=== PATIENT | female | born 1950 | race Caucasian/White ===

== ENCOUNTER 2020-04-10 08:44 | Emergency (ER) | payer OTHER, SELFPAY ==
[2020-04-10 08:57] VITALS: BP 164/96; PULSE 84; RESP 16; TEMP 36.8; O2SAT 99
--- NOTE | 2020-04-10 09:10 | ED.SKABFB ---
HPI - Skin/Abscess/Foreign Bdy General Chief complaint: Skin/Abscess/Foreign Body Stated complaint: insect bites Time Seen by Provider: 04/10/20 08:57 Source: patient and RN notes reviewed Mode of arrival: ambulatory Limitations: no limitations History of Present Illness HPI narrative: Patient presents today complaining of severely pruritic bumps to the chin, upper back, neck, and right breast. They were noted yesterday morning. They itch profusely. Patient has been using alcohol wipes, Benadryl, and hydrocortisone without much relief. Patient lives alone. States she does work outside frequently. MD complaint: insect bite/sting Related Data Allergies Allergy/AdvReac Type Severity Reaction Status Date / Time No Known Allergies Allergy Verified 04/25/14 13:04 Review of Systems Review of Systems: Narrative: CONSTITUTIONAL: Denies body aches, fever, chills, or sweats. EYES: Denies visual changes, redness, or discharge. ENT: Denies rhinorrhea, congestion, sore throat, or otalgia. CARDIOVASCULAR: Denies chest pain, palpitations, or edema. RESPIRATORY: Denies cough or dyspnea. GASTROINTESTINAL: Denies abdominal pain, nausea, vomiting, or diarrhea. GENITOURINARY: Denies dysuria or hematuria. SKIN: Denies wounds.+ Pruritic bumps MUSCULOSKELETAL: Denies back pain, joint pain, or myalgia. NEUROLOGIC: Denies headache, numbness, tingling, or weakness. PSYCH: Denies depression or anxiety. [facility]LY [facility] Past Medical History Medical History (Updated 04/10/20 @ 09:13 by Stephanie Leon, [facility], ) Blood glucose elevated HTN (hypertension) with goal to be determined Lumbar spondylosis Social History Social History (Updated 01/08/20 @ 11:52 by Sasha Briones) Social History: Smoking status: Former smoker Tobacco type: cigarettes Second hand tobacco smoke exposure: No Smoking end date: 11/12/97 Alcohol intake: current Drinks per week: 2 Substance use: never Substance use type: does not use Gender identity (if verbalized by the patient): Female Comments At time of signature, I have reviewed and agree with nursing past medical, surgical, social and family history unless otherwise noted. Please see nursing chart for further information. There is no relevant family history pertinent to the presenting complaint Exam Narrative: Exam Narrative: GENERAL: Well-appearing, well-nourished, and in no acute distress. HEAD: Normocephalic, atraumatic. EYES: EOMI. No redness or drainage. Conjunctivae normal. ENT: Mucous membranes pink and moist. NECK: Normal AROM. Supple. No lymphadenopathy. CHEST: No respiratory distress. EXTREMITIES: Normal range of motion. No edema. SKIN: Warm, dry. Capillary refill normal. Normal skin turgor. Erythematous nodules with obvious puncture wounds to bilateral neck, bilateral chin, right upper back, and right wrist. Consistent with insect bites. Nontender. No active drainage. NEURO: No focal deficits. Alert and oriented x3. Gait steady. PSYCH: Normal affect. No signs of depression or anxiety. Course Vital Signs Vital signs: Vital Signs Temperature 98.3 F 04/10/20 08:57 Pulse Rate 84 04/10/20 08:57 Respiratory Rate 16 04/10/20 08:57 Blood Pressure 164/96 H 04/10/20 08:57 Pulse Oximetry 99 04/10/20 08:57 Temperature 98.3 F 04/10/20 08:57 Pulse Rate 84 04/10/20 08:57 Respiratory Rate 16 04/10/20 08:57 Blood Pressure 164/96 H 04/10/20 08:57 Pulse Oximetry 99 04/10/20 08:57 Reviewed. Pt has been instructed to follow up with her PCP regarding her elevated blood pressure today. MDM - Skin/Abscess/Foreign Bdy Differential Diagnosis Differential diagnosis: Likely abscess of skin or subcutaneous tissue, urticaria, cellulitis, insect bites, impetigo and contact dermatitis Critical Care Time Critical Care Time Critical Care Time: No Discharge Plan Discharge Clinical Impression: Allergic reaction to insect bite Patient Disposi
== END 2020-04-10 09:18 | disposition home or self-care (01) ==
PROVIDERS: Emergency Provider Nurse Practitioner; PCP Family Medicine
DX: T63.481A Toxic effect of venom of other arthropod, accidental (unintentional), initial encounter (principal); I10 Essential (primary) hypertension; Z87.891 Personal history of nicotine dependence
CPT/HCPCS: 99213; G0463

== ENCOUNTER → 2020-05-10 13:07 | Outpatient (CLI) | payer OTHER, SELFPAY ==
--- NOTE | ~2020-05-10 | DEXA_ITS ---
Bone Density Report Name: Ying Almonte Age: 69 Sex: Female Ethnicity: White Date of : 1950 Indication: postmenopausal; screening for osteoporosis; Referring Provider: Stacie Kumar Study: Bone densitometry was performed. Exam Date: May 10, 2020 Accession number: [id number] Bone Density: Region BMD T-score Z-score Classification AP Spine (L1-L4) 1.030 -0.2 2.1 Normal Femoral Neck (Left) 0.737 -1.0 0.9 Normal Total Hip (Left) 0.947 0.0 1.6 Normal Femoral Neck (Right) 0.871 0.2 2.1 Normal Total Hip (Right) 0.998 0.5 2.1 Normal Total Hip Mean 0.973 0.3 1.9 Normal World Health Organization criteria for BMD impression classify patients as: Normal (T-score at or above -1.0), Osteopenia (T-score between -1.0 and -2.5), or Osteoporosis (T-score at or below -2.5). 10-year Fracture Risk: FRAX not reported because: All T-scores for Spine Total, Hip Total, Femoral Neck at or above -1.0 Previous Exams: Region Exam Age BMD T-score BMD Change BMD Change Date g/cm2 vs Baseline vs Previous AP Spine(L1-L4) 05/10/2020 69 1.030 -0.2 0.028* 0.028* 02/01/2018 67 1.001 -0.4 Total Hip(Left) 05/10/2020 69 0.947 0.0 0.021 0.021 02/01/2018 67 0.926 -0.1 Total Hip(Right) 05/10/2020 69 0.998 0.5 0.021 0.021 02/01/2018 67 0.977 0.3 *Denotes significance at 95% confidence level, LSC for AP Spine = 0.022 g/cm2, LSC for Total Hip = 0.027 g/cm2 Clinical Information Provided by Patient: Has used the following medications: Vitamin D Patient maximum height was 59 Menopause Age: 53 No regular weight bearing exercise Does not regularly consume dairy products Drinks caffeinated beverages Onset of menses at age 9 Number of children 3 Impression: The patient has normal bone mass. No significant bone loss was observed. Discussion: BONE DENSITY IS ABOVE THE MINIMUM DESIRABLE LEVEL AT ALL SKELETAL SITES TESTED. This patient?s bone mineral density is above the minimum desirable level (T-score -1.0 or better) at all sites measured. The patient should follow a healthful lifestyle (good nutrition with adequate calcium and vitamin D, and appropriate weight-bearing exercise). Follow-Up: Consider repeating this study in 5 years or sooner if there is some new clinical indication. Reported by: JAIME on 05/10/2020 1:27:00 PM. violet Joseph
--- NOTE | ~2020-05-10 | MM_ITS ---
EXAMINATION: MM screening [facility] BI w rene HISTORY: Screening mammogram TECHNIQUE: Craniocaudal and mediolateral oblique 3-D tomosynthesis images were obtained and synthetic 2-D images were generated. CAD analysis was submitted and interpreted. COMPARISON: Comparison to multiple prior studies sequentially, with oldest reviewed study dated 07/22. BREAST PARENCHYMAL COMPOSITION: There are scattered areas of fibroglandular density. FINDINGS: There is no evidence of suspicious mass, calcification, or architectural distortion to sugg est malignancy in either breast. There has been no suspicious interval change. IMPRESSION: 1. No mammographic evidence of malignancy. 2. Recommend routine screening mammography in one year. BI-RADS Category 1: Negative Reviewed, dictated and finalized at location A.
== END ==
PROVIDERS: PCP Family Medicine; Visit Provider Physician Assistant
DX: Z12.31 Encounter for screening mammogram for malignant neoplasm of breast (principal); Z78.0 Asymptomatic menopausal state
CPT/HCPCS: 77063; 77067; 77080

== ENCOUNTER → 2021-05-12 11:06 | Outpatient (CLI) | payer OTHER, SELFPAY ==
--- NOTE | ~2021-05-12 | MM_ITS ---
EXAMINATION: MM screening [facility] BI w rene HISTORY: Screening TECHNIQUE: Craniocaudal and mediolateral oblique 3-D tomosynthesis images were obtained and synthetic 2-D images were generated. CAD analysis was submitted and interpreted. COMPARISON: Comparison to multiple prior studies sequentially, with oldest reviewed study dated 07/22. BREAST PARENCHYMAL COMPOSITION: There are scattered areas of fibroglandular density. FINDINGS: There is no evidence of suspicious mass, calcification, or architectural distortion to sugg est malignancy in either breast. There has been no suspicious interval change. IMPRESSION: 1. No mammographic evidence of malignancy. 2. Recommend routine screening mammography in one year. BI-RADS Category 1: Negative Reviewed, dictated and finalized at location A.
== END ==
PROVIDERS: PCP Family Medicine; Visit Provider Physician Assistant
DX: Z12.31 Encounter for screening mammogram for malignant neoplasm of breast (principal)
CPT/HCPCS: 77063; 77067

== ENCOUNTER → 2022-05-06 10:35 | Outpatient (CLI) | payer OTHER, SELFPAY ==
--- NOTE | ~2022-05-06 | MR_ITS ---
EXAMINATION: MR lumbar spine wo con DATE: 05/06/2022 11:41 INDICATION: lumbar spondylosis with radiculopathy, lbp pavan leg pain . TECHNIQUE: Magnetic resonance imaging (MRI) of the lumbar spine was performed without intravenous con trast. Sequences included sagittal T2-weighted FSE, sagittal T2-weighted FS FSE, sagittal T1-weighted FSE, and axial T2-weighted FSE. COMPARISON: None FINDINGS: The last fully formed and hydrated disc is designated L5-S1. The marrow signal is benign an d homogenous. Conus terminates at T12-L1. 2 mm retrolisthesis of T12 on L1. Severe disc space narrowi ng at L5-S1. Nerve roots are mildly clumped and serpiginous. Multilevel disc dehydration. The followi ng disc levels are specifically discussed: T11-T12: The disc does not extend beyond the endplate margin. There is no facet joint osteoarthritis. There is no neural foraminal stenosis. There is no central canal stenosis. T12-L1: Moderate diffuse bulge. There is moderate facet joint osteoarthritis. There is severe right a nd mild left neural foraminal stenosis. There is moderate central canal stenosis. L1-L2: Moderate diffuse bulge. There is moderate facet joint osteoarthritis. There is no neural shahnaz inal stenosis. There is no central canal stenosis. L2-L3: Moderate diffuse bulge. There is severe facet joint osteoarthritis. There is moderate bilatera l neural foraminal stenosis. There is severe central canal stenosis. L3-L4: Moderate diffuse bulge. There is severe facet joint osteoarthritis. There is moderate bilatera l neural foraminal stenosis. There is moderate central canal stenosis. L4-L5: Moderate diffuse bulge. There is severe facet joint osteoarthritis. There is moderate bilatera l neural foraminal stenosis. There is moderate central canal stenosis. L5-S1: The disc does not extend beyond the endplate margin. There is moderate facet joint osteoarthri tis. There is no neural foraminal stenosis. There is no central canal stenosis. IMPRESSION: 1. Severe central canal stenosis at L2-3. 2. Severe degenerative disc disease at L5-S1. 3. Grade 1 retrolisthesis of T12 on L1 which contributes to severe right neural foraminal narrowing a nd moderate central canal narrowing. 4. Adhesive lumbar arachnoiditis. Reviewed, dictated and finalized at location K. IMPRESSION: 1. Severe central canal stenosis at L2-3. 2. Severe degenerative disc disease at L5-S1. 3. Grade 1 retrolisthesis of T12 on L1 which contributes to severe right neural foraminal narrowing and moderate central canal narrowing. 4. Adhesive lumbar arachnoiditis.
== END ==
PROVIDERS: PCP Family Medicine; Visit Provider Family Medicine
DX: M47.16 Other spondylosis with myelopathy, lumbar region (principal); M48.061 Spinal stenosis, lumbar region without neurogenic claudication; M51.37 Other intervertebral disc degeneration, lumbosacral region; M43.14 Spondylolisthesis, thoracic region; G03.8 Meningitis due to other specified causes
CPT/HCPCS: 72148

== ENCOUNTER 2022-06-17 08:34 | Emergency (ER) | payer OTHER, SELFPAY ==
[2022-06-17 08:42] VITALS: BP 152/78; PULSE 82; RESP 18; TEMP 36.7; O2SAT 98
--- NOTE | 2022-06-17 09:19 | ED.URI ---
HPI - URI/Sore Throat General Chief Complaint: Upper Respiratory Infection Stated Complaint: Congestion Time Seen by Provider: 06/17/22 09:00 Source: patient Mode of arrival: ambulatory Limitations: no limitations History of Present Illness HPI Narrative: Patient presents today complaining of scratchy throat, cough, congestion x3 days. Denies fever or known sick contacts. She is been taking allergy medicine and cough and cold medicine without relief. Related Data Allergies Allergy/AdvReac Type Severity Reaction Status Date / Time No Known Allergies Allergy Verified 06/17/22 08:38 Review of Systems Review of Systems: CONSTITUTIONAL: Denies body aches, fever, chills, or sweats. EYES: Denies visual changes, redness, or discharge. ENT: Denies rhinorrhea, otalgia.+Scratchy throat, congestion CARDIOVASCULAR: Denies chest pain, palpitations, or edema. RESPIRATORY: Denies dyspnea.+Cough GASTROINTESTINAL: Denies abdominal pain, nausea, vomiting, or diarrhea. GENITOURINARY: Denies dysuria or hematuria. SKIN: Denies rash, itching, or wounds. MUSCULOSKELETAL: Denies back pain, joint pain, or myalgia. NEUROLOGIC: Denies headache, numbness, tingling, or weakness. PSYCH: Denies depression or anxiety. [facility] Past Medical History Medical History Blood glucose elevated HTN (hypertension) with goal to be determined Lumbar spondylosis Mixed hyperlipidemia Osteoarthritis of left hip Prediabetes Vitamin D deficiency Family History Family History Mother Hypertension Family history of lymphoma, Onset Age: 79 Patient's mother is Family history of chronic obstructive pulmonary disease, Onset Age: 79 Sibling Patient's sister is in good health Patient's brother is in good health Father Family history of malignant neoplasm of brain, Onset Age: 70 Patient's father is Social History Social History Social History: Smoking packs per day: 0.5 Smoking cigarettes per day: 10.0 Years smoked: 20 Smoking pack-years: 10.00 Smoking status: Former smoker Tobacco type: cigarettes Second hand tobacco smoke exposure: No Smoking end date: 11/12/97 Alcohol intake: current Alcohol use details: Once or twice a month. Substance use: never Substance use type: does not use Gender identity (if verbalized by the patient): Female Sexual Orientation (if Verbalized by the Patient): Straight or Heterosexual Comments At time of signature, I have reviewed and agree with nursing past medical, surgical, social and family history unless otherwise noted. Please see nursing chart for further information. There is no relevant family history pertinent to the presenting complaint Exam Narrative: GENERAL: Well-appearing, well-nourished, and in no acute distress. HEAD: Normocephalic, atraumatic. EYES: EOMI. No redness or drainage. Conjunctivae normal. ENT: Mucous membranes pink and moist. Nares Congested With rhinorrhea TMs normal bilaterally. Throat Mildly erythematous without edema or exudate. Uvula midline. NECK: Normal AROM. Supple. No lymphadenopathy. CHEST: No respiratory distress. Clear to auscultation. HEART: Regular rate and rhythm. No murmur appreciated. Normal peripheral pulses. EXTREMITIES: Normal range of motion. No edema. SKIN: Warm, dry, no rash. Capillary refill normal. Normal skin turgor. NEURO: No focal deficits. Alert and oriented x3. Gait steady. PSYCH: Normal affect. No signs of depression or anxiety. Course Course Level of Care: Express Care Visit Vital Signs Vital signs: Vital Signs Temperature 98.0 F 06/17/22 08:42 Pulse Rate 82 06/17/22 08:42 Respiratory Rate 18 06/17/22 08:42 Blood Pressure 152/78 H 06/17/22 08:42 Pulse Oximetry 98 06/17/22 08:42
== END 2022-06-17 09:28 | disposition home or self-care (01) ==
PROVIDERS: Emergency Provider Nurse Practitioner; PCP Family Medicine
DX: J06.9 Acute upper respiratory infection, unspecified (principal); Z20.822 Contact with and (suspected) exposure to COVID-19; Z87.891 Personal history of nicotine dependence; I10 Essential (primary) hypertension; E78.2 Mixed hyperlipidemia; M16.12 Unilateral primary osteoarthritis, left hip; R73.03 Prediabetes
CPT/HCPCS: 87426; 99213; C9803; G0463

== ENCOUNTER → 2022-07-26 14:46 | Outpatient (CLI) | payer OTHER, SELFPAY ==
--- NOTE | ~2022-07-26 | MM_ITS ---
EXAMINATION: MM screening [facility] BI w rene HISTORY: Screening mammogram TECHNIQUE: Craniocaudal and mediolateral oblique 3-D tomosynthesis images were obtained and synthetic 2-D images were generated. CAD analysis was submitted and interpreted. COMPARISON: 05/12/2021, 05/10/2020, 02/01/2018 bilateral screening mammogram examinations BREAST PARENCHYMAL COMPOSITION: There are scattered areas of fibroglandular density. FINDINGS: Again noted are occasional small benign-appearing circumscribed opacities, measuring up to 4 mm dimension. There is no evidence of suspicious mass, calcification, or architectural distortion t o suggest malignancy in either breast. There has been no suspicious interval change. IMPRESSION: 1. No mammographic evidence of malignancy. 2. Recommend routine screening mammography in one year. BI-RADS Category 2: Benign finding(s). Reviewed, dictated and finalized at location A.
== END ==
PROVIDERS: PCP Family Medicine; Visit Provider Nurse Practitioner Gerontology
DX: Z12.31 Encounter for screening mammogram for malignant neoplasm of breast (principal)
CPT/HCPCS: 77063; 77067

== ENCOUNTER 2023-12-07 11:16 | Outpatient (CLI) | payer OTHER, SELFPAY ==
[2023-12-07 12:13] LABS: Influenza A QL RT-PCR Negative (Negative); Influenza B QL RT-PCR Negative (Negative); RSV RNA, RT-PCR Negative (Negative); SARS-CoV-2 RNA PCR Positive (Negative)
== END 2023-12-07 11:17 | disposition home or self-care (01) ==
LOC: ANHLAB 11:18
PROVIDERS: PCP Family Medicine; Visit Provider Physician Assistant
DX: J02.9 Acute pharyngitis, unspecified (principal); Z20.822 Contact with and (suspected) exposure to COVID-19
CPT/HCPCS: 87637

== ENCOUNTER 2024-03-12 14:42 | Outpatient (CLI) | payer OTHER, SELFPAY ==
--- NOTE | ~2024-03-12 | XR_ITS ---
XR shoulder RT min 2V DATE: 03/12/2024 15:03 INDICATION: Right shoulder pain TECHNIQUE: 4 views COMPARISON: None FINDINGS: There is osteopenia. Fracture or dislocation, periosteal reaction or bone destruction. There is mild degenerative change a t the acromioclavicular and glenohumeral joints. Diffuse idiopathic skeletal hyperostosis of the thoracic spine. IMPRESSION: Osteopenia Mild degenerative change Reviewed, dictated and finalized at location A.
--- NOTE | ~2024-03-12 | XR_ITS ---
XR knee RT 3V DATE: 03/12/2024 15:03 INDICATION: Right knee pain TECHNIQUE: [place] and standing AP and lateral views COMPARISON: None FINDINGS: There is mild periarticular spurring of the patellofemoral joint. There is more prominent c ompared to the spurring and moderately severe loss of joint space medial compartment. Lateral compart ment joint space is well-preserved. No fracture or dislocation or significant joint effusion is evident. No periosteal reaction or bone d estruction. Osteopenia. IMPRESSION: Osteoarthritis, most prominent at the medial compartment Reviewed, dictated and finalized at location A.
== END 2024-03-12 14:43 ==
LOC: MICIMG 14:44
PROVIDERS: PCP Family Medicine; Visit Provider Physician Assistant
DX: M85.811 Other specified disorders of bone density and structure, right shoulder (principal); M17.11 Unilateral primary osteoarthritis, right knee
CPT/HCPCS: 73030; 73562

== ENCOUNTER 2024-04-04 10:56 | Outpatient (CLI) | payer OTHER, SELFPAY ==
--- NOTE | ~2024-04-04 | MM_ITS ---
EXAMINATION: MM screening [facility] BI w rene HISTORY: Screening mammogram TECHNIQUE: Craniocaudal and mediolateral oblique 3-D tomosynthesis images were obtained and synthetic 2-D images were generated. CAD analysis was submitted and interpreted. COMPARISON: 05/12/2021, 05/10/2020 bilateral screening mammogram examinations BREAST PARENCHYMAL COMPOSITION: There are scattered areas of fibroglandular density. FINDINGS: Scattered bilateral benign calcifications. There is no evidence of suspicious mass, calcifi cation, or architectural distortion to suggest malignancy in either breast. There has been no suspici ous interval change. IMPRESSION: 1. No mammographic evidence of malignancy. 2. Recommend routine screening mammography in one year. BI-RADS Category 2: Benign finding(s). Reviewed, dictated and finalized at location B.
--- NOTE | ~2024-04-04 | DEXA_ITS ---
Bone Density Report Name: FERNY CHEN Age: 73 Sex: Female Ethnicity: White Date of : 1950 Indication: postmenopausal; screening for osteoporosis; height loss; Referring Provider: OLIVER YEUNG Study: Bone densitometry was performed. Exam Date: April 04, 2024 Accession number: [id number] Bone Density: Region BMD T-score Z-score Classification AP Spine (L1-L4) 1.027 -0.2 2.3 Normal Femoral Neck (Left) 0.782 -0.6 1.5 Normal Total Hip (Left) 0.922 -0.2 1.7 Normal Femoral Neck (Right) 0.879 0.3 2.4 Normal Total Hip (Right) 0.975 0.3 2.1 Normal Total Hip Mean 0.949 0.1 1.9 Normal World Health Organization criteria for BMD impression classify patients as: Normal (T-score at or above -1.0), Osteopenia (T-score between -1.0 and -2.5), or Osteoporosis (T-score at or below -2.5). 10-year Fracture Risk: FRAX not reported because: All T-scores for Spine Total, Hip Total, Femoral Neck at or above -1.0 Previous Exams: Region Exam Age BMD T-score BMD Change BMD Change Date g/cm2 vs Baseline vs Previous AP Spine(L1-L4) 04/04/2024 73 1.027 -0.2 0.025 -0.003 05/10/2020 69 1.030 -0.2 0.028* 0.028* 02/01/2018 67 1.001 -0.4 Total Hip(Left) 04/04/2024 73 0.922 -0.2 -0.004 -0.025 05/10/2020 69 0.947 0.0 0.021 0.021 02/01/2018 67 0.926 -0.1 Total Hip(Right) 04/04/2024 73 0.975 0.3 -0.002 -0.024 05/10/2020 69 0.998 0.5 0.021 0.021 02/01/2018 67 0.977 0.3 *Denotes significance at 95% confidence level, LSC for AP Spine = 0.022 g/cm2, LSC for Total Hip = 0.027 g/cm2 Clinical Information Provided by Patient: Patient maximum height was 60.0 Menopause Age: 53 Does not regularly consume dairy products Drinks caffeinated beverages Onset of menses at age 9 Number of children 3 Impression: The patient has normal bone mass. No significant bone loss was observed. Discussion: BONE DENSITY IS ABOVE THE MINIMUM DESIRABLE LEVEL AT ALL SKELETAL SITES TESTED. This patient?s bone mineral density is above the minimum desirable level (T-score -1.0 or better) at all sites measured. The patient should follow a healthful lifestyle (good nutrition with adequate calcium and vitamin D, and appropriate weight-bearing exercise). Follow-Up: Consider repeating this study in 5 years or sooner if there is some new clinic
== END 2024-04-04 10:57 ==
LOC: MICIMG 10:57
PROVIDERS: PCP Family Medicine; Visit Provider Physician Assistant
DX: Z12.31 Encounter for screening mammogram for malignant neoplasm of breast (principal); Z78.0 Asymptomatic menopausal state; Z13.820 Encounter for screening for osteoporosis
CPT/HCPCS: 77063; 77067; 77080

== ENCOUNTER 2024-09-11 07:50 | Outpatient (CLI) | payer OTHER, SELFPAY ==
--- NOTE | ~2024-09-11 | XR_ITS ---
Right Knee Technique: AP, lateral, and sunrise views were obtained. Clinical History: Pain Findings: No fracture or dislocation is seen. There is mild medial compartment narrowing with medial joint line osteophyte formation. Soft tissues are unremarkable. No joint effusion is seen. Impression: Moderate degenerative change of the medial compartment, as above. Reviewed, dictated and finalized at location . Impression: Moderate degenerative change of the medial compartment, as above.
--- NOTE | ~2024-09-11 | XR_ITS ---
Left Knee Technique: AP, lateral, and sunrise views were obtained. Clinical History: Pain Findings: No fracture or dislocation is seen. There is mild medial compartment narrowing with medial joint line and intercondylar notch moderate osteophyte formation. There is minimal patellar spurring. . Soft tissues are unremarkable. No joint effusion is seen. Impression: Moderate medial compartment degenerative change, as above. Minimal patellar spurring. Reviewed, dictated and finalized at location M. Impression: Moderate medial compartment degenerative change, as above. Minimal patellar spurring.
== END 2024-09-11 07:51 | disposition home or self-care (01) ==
LOC: MICIMG 07:52
PROVIDERS: PCP Family Medicine; Visit Provider Orthopaedic Surgery
DX: M25.562 Pain in left knee (principal); M25.561 Pain in right knee
CPT/HCPCS: 73564

== ENCOUNTER 2024-09-25 08:14 | Outpatient (CLI) | payer OTHER, SELFPAY ==
--- NOTE | ~2024-09-25 | MR_ITS ---
MRI of the lumbar spine Clinical History: Radiculopathy Technique: Axial T2-weighted images, and sagittal T1-weighted, T2-weighted, and T2 fat-sat images wer e acquired. Findings: There is no fracture or subluxation lumbar spine. Vertebral bodies maintain normal height a nd alignment. No suspicious bone marrow signal abnormality seen. At L1-L2, there is mild degenerative change. There is disc bulge with advanced facet arthropathy. The re is mild central canal stenosis/thecal sac compression. There is moderate to advanced bilateral rajni ral foraminal narrowing. At L2-L3, there is mild degenerative thinning. There is diffuse disc bulge with severe facet arthropa thy, resulting in severe spinal canal stenosis/thecal sac compression. There is moderate to advanced bilateral neural foraminal narrowing, left worse than right. At L3-L4, there is disc bulge with advanced facet arthropathy, resulting in moderate spinal canal issa nosis/thecal sac compression. There is severe left neural foraminal narrowing, and mild to moderate r ight neural foraminal narrowing. At L4-L5, there is diffuse disc bulge with severe facet arthropathy. There is minimal central canal s tenosis. There is moderate bilateral neural foraminal narrowing. At L5-S1, there is severe degenerative disc narrowing. No disc bulge or herniation. There is advanced facet arthropathy. No central canal stenosis. There is mild bilateral neural foraminal narrowing. Paravertebral soft tissues are unremarkable. Impression: Advanced degenerative spondylosis, as detailed above, worst at L2-L3. Reviewed, dictated and finalized at [facility]. [facility] [employer]ATIONS CONSULTANT Impression: Advanced degenerative spondylosis, as detailed above, worst at L2-L3.
== END 2024-09-25 08:15 | disposition home or self-care (01) ==
LOC: GOSHIMG 08:15
PROVIDERS: PCP Nurse Practitioner Family; Visit Provider Nurse Practitioner Family
DX: M47.816 Spondylosis without myelopathy or radiculopathy, lumbar region (principal)
CPT/HCPCS: 72148